=== PATIENT | female | born 1970 | race Two or more races ===

== ENCOUNTER 2016-08-11 15:38 | Emergency (ER) | payer MEDICAID ==
[~2016-08-11] VITALS: Ht 157.5 cm; Wt 81.6 kg
[~2016-08-11 15:38] MED LIST: INSLANTI; LORA-655; SULF-35
[2016-08-11 16:02] VITALS: BP 134/76
== END 2016-08-11 17:47 | disposition home or self-care (01) ==
LOC: ER 15:49
DX: S00.83XA Contusion of other part of head, initial encounter (principal); J45.909 Unspecified asthma, uncomplicated; E11.9 Type 2 diabetes mellitus without complications; Z88.6 Allergy status to analgesic agent; Z90.49 Acquired absence of other specified parts of digestive tract; W51.XXXA Accidental striking against or bumped into by another person, initial encounter; Y93.89 Activity, other specified; Y99.8 Other external cause status; Y92.099 Unspecified place in other non-institutional residence as the place of occurrence of the external cause
CPT/HCPCS: 70450